=== PATIENT | male | born 2000 | race Caucasian/White ===

== ENCOUNTER 2021-09-21 00:44 | Emergency (ER) | payer OTHER ==
[~2021-09-21] VITALS: Ht 180.3 cm; Wt 66.7 kg
--- NOTE | 2021-09-21 01:18 | NUR ---
BIBMOTHER C/O SEWING NEEDLE STUCK IN LEFT INDEX FINGER . PATIENT ALERT AND ORIENTED X3. AMBULATORY WITH NON LABORED BREATHING IN BED 11 AWAITING MD BARBOSA.
[2021-09-21] MEDS ORDERED: IBUPROFEN 600 MG TABLET ONE (01:44)
[2021-09-21] MEDS ORDERED: TDAP [DIPH/PERTUSSIS/TET] 0.5 ML VIAL IM ONE ×2 (01:44→02:00)
[2021-09-21] MEDS ORDERED: LIDOCAINE /MPF 1% VIAL 5 ML VIAL ONE (01:44)
--- NOTE | 2021-09-21 01:51 | NUR ---
XRAY AT BEDSIDE
[2021-09-21] MEDS ORDERED: LIDOCAINE 1% INJ 50 ML MDV IJ ONE (02:00)
[2021-09-21] MEDS ORDERED: IBUPROFEN 600 MG TABLET PO ONE (02:00)
--- NOTE | 2021-09-21 02:09 | NUR ---
DR JASPREET AGUILA AT PT'S BEDSIDE FOR I&D TO FINGER
[2021-09-21] MEDS ORDERED: LIDOCAINE 2% 20 ML MDV ONE (02:59)
[2021-09-21] MEDS ORDERED: HYDROCODONE/APAP 10/325MG TABLET PO ONE (03:30)
[2021-09-21] MEDS ORDERED: HYDROCODONE/APAP 10/325MG TABLET ONE (03:46)
[2021-09-21 04:21] VITALS: BP 129/78
--- NOTE | 2021-09-21 04:21 | NUR ---
Patient discharged to home in stable condition. Written and verbal after care instructions given. Patient verbalizes understanding of instruction. DISC PROVIDED
== END 2021-09-21 04:22 | disposition home or self-care (01) ==
LOC: ER 00:49
DX: S60.451A Superficial foreign body of left index finger, initial encounter (principal); W45.8XXA Other foreign body or object entering through skin, initial encounter; Y93.89 Activity, other specified; Y92.89 Other specified places as the place of occurrence of the external cause; Y99.8 Other external cause status
CPT/HCPCS: 99284; 90471; 90715; 73140; J3490 ×2